=== PATIENT | female | born 1990 | race Two or more races ===

== ENCOUNTER → 2024-05-03 | Outpatient (CLI) | payer MEDICARE, MEDICAID, SELFPAY ==
--- NOTE | 2024-05-03 14:45 | XR_ITS ---
Examination: Abdomen sonogram, complete Date and time of exam: May 07, 2024 at 1456 hrs. Indications: Left leg pain beginning one week ago. Technique: Multiple real-time grayscale transabdominal sonographic images of the abdomen have been obtained. Findings: Normal gallbladder. Normal common bile duct 0.2 cm. Pancreatic head 1.7. Mild enlargement. Liver 16.1 cm, fatty liver Normal sella. Patent IVC. Right kidney 10.9 cm cortex 1.9 cm Left kidney 12.9 cm cortex 2.1 cm 11 mm calculus mid pole left kidney Spleen 9.3 cm Impression: 11 mm nonobstructing left renal calculus
== END | disposition home or self-care (01) ==
PROVIDERS: PCP Physician Assistant; Referring Provider Physician Assistant; Visit Provider Physician Assistant
DX: N20.0 Calculus of kidney (principal)
CPT/HCPCS: 76700

== ENCOUNTER → 2024-05-30 | Outpatient (CLI) | payer MEDICARE, MEDICAID, SELFPAY ==
--- NOTE | 2024-05-30 15:10 | XR_ITS ---
Examination: CT abdomen and pelvis without contrast. Coronal 3-D reconstructions. Sagittal 2-D reconstructions. Date and time of exam:May 30, 2024 1344 hrs. Indications: Left upper abdominal pain beginning one month ago, history kidney stones CTDI: vol (mGy): 9.26 DLP: (mGycm): 489 Technique: Axial images of the abdomen have been obtained, 3 mm slice thickness Intravenous contrast material has not been administered. Low dose protocols were performed. One or more of the following dose reduction techniques were used; automated exposure control, adjustment of the mA and/or KV according to patient size, use of iterative reconstruction technique. Findings: Diffuse fatty infiltration throughout the liver no focal liver or splenic lesions Contracted gallbladder No pancreatic mass Right adrenal mass, 24 mm, not atypical adrenal adenoma, bilateral, measuring at least 4.8 cm in total dimension No renal or ureteral calculi No bowel obstruction No diverticulitis Anteverted uterus Bladder intact Osseous structures intact Impression: Large bilobed right adrenal mass, differential would include metastatic primary adrenal gland tumor Recommend MRCP, MRI abdomen pre and postcontrast, adrenal gland protocol, follow-up
[2024-05-30 15:28] LABS: HCG Qualitative,Urine Negative
== END | disposition home or self-care (01) ==
PROVIDERS: PCP Physician Assistant; Referring Provider Radiology Diagnostic Radiology; Visit Provider Physician Assistant
DX: N20.0 Calculus of kidney (principal); Z32.00 Encounter for pregnancy test, result unknown
CPT/HCPCS: 74176; 81025

== ENCOUNTER → 2024-06-07 | Outpatient (CLI) | payer MEDICARE, MEDICAID, SELFPAY ==
[2024-06-06 17:53] LABS: HCG Qualitative,Urine Negative
--- NOTE | 2024-06-07 14:30 | XR_ITS ---
Examination: MRI abdomen with intravenous contrast. MRI abdomen without intravenous contrast. Date and time of exam: June 07, 2024 1544 hours INDICATIONS: Left-sided abdominal pain 2 months, CT abdomen pelvis May 30, 2024 right adrenal mass 4.8 cm Technique: Multiple axial, sagittal and coronal sections of the abdomen obtained. Transverse images, TR 6020, TE 107. T1 weighted transverse images, TR 582, TE 9.5. T2-weighted sagittal images, TR 4000, TE 105. T2-weighted sagittal images, TR 4000, TE 5. Coronal images, TR 4210, TE 107. Axial and coronal images are obtained post 19 cc intravenous injection, gadolinium. Findings: No focal liver or splenic lesions Right adrenal mass 32 mm with increased signal on the T2-weighted images Postcontrast images are degraded by patient motion There is rim-like enhancement in the right adrenal mass Normal left adrenal gland Small benign left renal cyst No ascites No adenopathy IMPRESSION: 32 mm right adrenal mass, signal characteristics favor metastatic or primary adrenal gland tumor
== END | disposition home or self-care (01) ==
PROVIDERS: PCP Family Medicine; Referring Provider Physician Assistant; Visit Provider Physician Assistant
DX: E27.8 Other specified disorders of adrenal gland (principal); Z32.00 Encounter for pregnancy test, result unknown
CPT/HCPCS: 74183; 81025; A9579

== ENCOUNTER → 2024-06-14 | Outpatient (BNVA) | payer MEDICARE, MEDICAID, SELFPAY | END | disposition home or self-care (01) | PROVIDERS: PCP Physician Assistant; Referring Provider Physician Assistant; Visit Provider Urology | DX: E27.8 Other specified disorders of adrenal gland (principal); D75.839 Thrombocytosis, unspecified; R31.0 Gross hematuria; G80.9 Cerebral palsy, unspecified; E66.9 Obesity, unspecified; Z68.31 Body mass index [BMI] 31.0-31.9, adult | CPT/HCPCS: 81003; 99212; G0463 ==

== ENCOUNTER 2024-08-30 08:02 | Outpatient (RCR) | payer MEDICARE, SELFPAY | END 2024-09-20 23:59 | disposition home or self-care (01) | LOC: SCTC 08:02 | PROVIDERS: PCP Family Medicine; Referring Provider Nurse Practitioner Family; Visit Provider Nurse Practitioner Family | DX: D75.839 Thrombocytosis, unspecified (principal); E27.8 Other specified disorders of adrenal gland; R10.2 Pelvic and perineal pain; R31.9 Hematuria, unspecified; E89.0 Postprocedural hypothyroidism; Z79.890 Hormone replacement therapy; Z85.850 Personal history of malignant neoplasm of thyroid; K76.0 Fatty (change of) liver, not elsewhere classified | CPT/HCPCS: 99213; G0463 ==